=== PATIENT | male | born 1945 | race Caucasian/White ===

== ENCOUNTER 2016-05-04 02:48 | Emergency (ER) | payer OTHER ==
[2016-05-04 02:35] LABS: BASOPHIL% 0.3 % (0-2.5); EOSINOPHIL# 0.1 X10e3 (0-0.7); EOSINOPHIL% 0.8 % (0.0-7.0); HEMATOCRIT 54.6 % (38.0-50.0); HEMOGLOBIN 17.9 gm/dL (13.0-16.0); LYMPHOCYTE# 1.7 X10e3 (1.0-3.5); LYMPHOCYTE% 11.6 % (17.0-45.0); MEAN CELL VOLUME 80.7 FL (83-96); MEAN CORPUSCULAR HEMOGLOBIN 26.5 PG (28-34); MEAN CORPUSCULAR HGB CONC 32.9 g/dL (30-36); MEAN PLATELET VOLUME 9.8 FL (6.5-11.5); MONOCYTE# 1.5 X10e3 (0-1.0); MONOCYTE% 10.5 % (3.0-12.0); NEUTROPHIL# 11.1 X10e3 (1.5-7.1); NEUTROPHIL% 76.8 % (40-75); PLATELET COUNT 259 X10e3 (140-420); RED BLOOD COUNT 6.76 X10e (3.90-5.60); RED CELL DISTRIBUTION WIDTH 15.3 % (11.0-15.5); WHITE BLOOD COUNT 14.4 X10e3 (4.0-10.5)
[2016-05-04 02:47] LABS: DIFF IND NO
[~2016-05-04 02:48] MED LIST: ASPIRIN81 MG PO; ATENOLOL PO; ATENOLOL50 MG PO; CELECOXIB200 MG PO; DYRENIUM100 MG PO; FISH OIL 1,001000 M1 PO; HYDRALAZINE HC100 MG PO; K-DUR20 ME1 PO; NEXIUM 24HR20 MG PO; NORCO1 TAB 10/3 PO; PRILOSEC PO; SIMVASTATIN20 MG PO; TOBRADEX EYE DRO5 ML OU; ZESTORETIC 20-1 EACH PO
[2016-05-04 02:58] LABS: ALBUMIN SERUM 4.6 g/dL (3.5-5.0); ALKALINE PHOSPHATASE 72 U/L (32-92); ALT (SGPT) 46 U/L (10-40); AST (SGOT) 35 U/L (10-42); BILIRUBIN, DIRECT 0.2 mg/dL (0.0-0.2); BILIRUBIN,INDIRECT 1.3 mg/dL (0.0-0.9); BILIRUBIN,TOTAL 1.5 mg/dL (0.2-2.0); BLOOD UREA NITROGEN 24 mg/dL (9-23); BUN/CREATININE RATIO 21.81; CALCIUM SERUM 8.4 mg/dL (8.4-10.2); CARBON DIOXIDE 25 mmol/L (22-31); CHLORIDE 104 mmol/L (100-111); CREATININE SERUM 1.1 mg/dL (0.6-1.4); GLOM FILT RATE Estimated ABOVE60 mL/min (>60); GLUCOSE FASTING 139 mg/dL (70-110); LIPASE 32 U/L (22-51); POTASSIUM 3.1 mmol/L (3.5-5.1); PROTEIN TOTAL SERUM 7.6 g/dL (6.0-8.3); SODIUM 132 mmol/L (135-145)
== END 2016-05-04 05:00 | disposition home or self-care (01) ==
LOC: CED 02:48
PROVIDERS: Emergency Medicine
DX: E87.6 Hypokalemia (principal); I10 Essential (primary) hypertension; E78.5 Hyperlipidemia, unspecified
CPT/HCPCS: 36415; 80048; 80076; 83690; 85025; 96360; 99284